=== PATIENT | female | born 1970 | race African-American/Black ===

== ENCOUNTER 2019-02-10 17:39 | Emergency (ER) | payer MEDICAID, OTHER ==
[~2019-02-10] VITALS: Ht 175.3 cm; Wt 74.8 kg
[2019-02-10 18:17] VITALS: BP 152/93
[2019-02-10] MEDS ORDERED: ONDANSETRON ODT 4 MG TAB PO ONE (22:15)
[2019-02-10] MEDS: MORPHINE SULFATE 10 MG/ML INJ 1ML SDV IM ONE ×2 (22:15→22:29)
[2019-02-10] MEDS ORDERED: HYDROcodone-ACET 10/325MG TAB PO ONE (22:45)
[2019-02-10] MEDS ORDERED: BACLOFEN 10 MG TAB PO ONE (22:45)
== END 2019-02-10 22:48 | disposition home or self-care (01) ==
LOC: ER 17:39
DX: M62.838 Other muscle spasm (principal); N85.8 Other specified noninflammatory disorders of uterus; I10 Essential (primary) hypertension; V89.2XXA Person injured in unspecified motor-vehicle accident, traffic, initial encounter; Y93.89 Activity, other specified; Y92.410 Unspecified street and highway as the place of occurrence of the external cause; Y99.8 Other external cause status
CPT/HCPCS: 71250; 72040; 74176; 99284; J2270; Q0162

== ENCOUNTER → 2022-09-30 | Outpatient (CLI) | payer MEDICAID ==
[~2022-09-30] VITALS: Ht 175.3 cm; Wt 86.2 kg
[~2022-09-30] MED LIST: ADENOSINE 72 MG in GIVE UN-DILUTED 0 ML IV STA
== END | disposition home or self-care (01) ==
LOC: XYW 08:04
PROVIDERS: ATTEND Specialist
DX: I10 Essential (primary) hypertension (principal); R07.9 Chest pain, unspecified; R42 Dizziness and giddiness
CPT/HCPCS: 78452; 93017; A9500; J0153

== ENCOUNTER 2023-11-05 12:08 | Emergency (ER) | payer MEDICAID ==
[~2023-11-05] VITALS: Ht 172.7 cm; Wt 90.9 kg
[2023-11-05 12:21] VITALS: PULSE 132; RESP 27; O2SAT 91
[2023-11-05] MEDS: FAMOTIDINE (10MG/ML) 2ML VL IV ONE (13:14)
[2023-11-05] MEDS: PANTOPRAZOLE 40 MG/10 ML VIAL INJ IV ONE (13:14)
[2023-11-05] MEDS: OCTREOTIDE ACETATE 500 MCG in SODIUM CHL 0.9% 99 ML IV SCH (13:14)
[2023-11-05] MEDS: OCTREOTIDE ACETATE 100 MCG/ML VL IV ONE (13:14)
[2023-11-05] MEDS: SODIUM CHLORIDE 0.9% 1,000 ML IV ONE (13:14)
[2023-11-05] MEDS: ONDANSETRON HCL 4 MG/2 ML VIAL IV ONE (13:14)
[2023-11-05 14:01] LABS: Basophils # (auto) 0 10 ^3/uL (0-0.2); Basophils % (auto) 0.3 % (0.0-2.0); Eosinophils # (auto) 0 10 ^3/uL (0-0.8); Eosinophils % (auto) 0.4 % (0.0-7.0); Hemoglobin 11.8 g/dL (12.2-16.2); Lymphocytes # (auto) 1.2 10 ^3/uL (0.4-5.4); Lymphocytes % (auto) 9.6 % (10.0-50.0); Mean Corpuscular Hemoglobin 28.2 pg (28.0-32.0); Mean Corpuscular Hgb Conc. 33.7 g/dL (32.0-36.0); Mean Corpuscular Volume 83.7 fL (80.0-100.0); Monocytes # (auto) 0.7 10 ^3/uL (0-1.3); Monocytes % (auto) 5.6 % (0.0-12.0); Neutrophils # (auto) 10.5 10 ^3/uL (1.6-8.6); Neutrophils % (auto) 84.1 % (37.0-80.0); Nucleated Red Blood Cells % 0.1 %; Platelet Count (auto) 232 10^3/uL (140-450); Red Blood Cells 4.18 10^6/uL (4.0-5.20); Red Cell Distribution Width 13.9 % (11.8-14.3); White Blood Cell 12.5 10^3/uL (4.4-10.8)
[2023-11-05 14:24] LABS: Alanine Aminotransferase 17 U/L (7-40); Albumin 4.3 g/dL (3.2-4.8); Alkaline Phosphatase 93 U/L (46-116); Anion Gap 8 (5-15); Aspartate Aminotransferase 10 U/L (13-40); BUN/Creatinine Ratio 20.7 (10.0-20.0); Bilirubin, Total 0.5 mg/dL (0.2-1.0); Blood Urea Nitrogen 18 mg/dL (9-23); Calcium 9.8 mg/dL (8.7-10.4); Carbon Dioxide 28 mmol/L (20-30); Chloride 107 mmol/L (98-107); Glucose 120 mg/dL (74-106); Potassium 3.9 mmol/L (3.5-5.1); Sodium 143 mmol/L (136-145); Total Protein 7.5 g/dL (5.7-8.2)
[2023-11-05] MEDS: ACETAMINOPHEN 500 MG TAB PO ONE (15:15)
[2023-11-05 15:16] LABS: INR 1.05 (0.9-1.15); Partial Thromboplastin Time 24.2 SEC (24.5-34.5); Prothrombin Time 11.1 sec (9.3-11.8)
[2023-11-05] MEDS: MORPHINE SULFATE 4 MG/ML SYR/VIAL IV ONE (16:54)
[2023-11-05] MEDS: IOHEXOL 350 MG/ML 100ML IJ ONE (17:48)
[2023-11-05] MEDS ORDERED: cefTRIAXone 1GM/50ML D5W 50 ML IV ONE (20:15)
[2023-11-05] MEDS ORDERED: levoFLOXacin 750MG 150 ML IV ONE (21:00)
[2023-11-05] MEDS: AZITHROMYCIN 500MG/ 250ML 250 ML IV ONE (22:00)
[2023-11-05 23:16] VITALS: PULSE 78; RESP 18; O2SAT 99
[2023-11-05 23:27] VITALS: BP 118/72; PULSE 74; RESP 15; TEMP 98.2; O2SAT 99
== END 2023-11-06 | disposition short-term general hospital (02) ==
LOC: ER 12:08 → EDBD 12:08 → ER 11-06
DX: R04.2 Hemoptysis (principal); J18.9 Pneumonia, unspecified organism; K92.0 Hematemesis; I71.40 Abdominal aortic aneurysm, without rupture, unspecified; E78.5 Hyperlipidemia, unspecified; I10 Essential (primary) hypertension; Z88.1 Allergy status to other antibiotic agents
CPT/HCPCS: 36415; 71045; 74176; 75635; 80053; 83880; 84484; 85025; 85610; 85730; 93005; 96365; 96366; 96367; 96375; 99285; J0456; J2270; J2405; J2470; J3490; J7030; Q9967